=== PATIENT | female | born 1970 | race Caucasian/White ===

== ENCOUNTER 2021-02-12 21:48 | Emergency (ER) | payer MEDICAID, OTHER ==
[~2021-02-12] VITALS: Ht 165.1 cm; Wt 95.9 kg
--- NOTE | 2021-02-12 22:25 | NUR ---
pt in bed with monitor in place and bed rails up bilaterally call light in hand and at bedside. md in to assess. pt in bed with no signs or symptoms of acute dsitress noted respirations even and unlabored
[2021-02-12 22:32] LABS: BASOPHILS % (AUTO) 1 % (0-1); EOSINOPHILS % (AUTO) 4 % (1-7); LYMPHOCYTES % (AUTO) 50 % (22-44); MD NO; MEAN CORPUSCULAR HEMOGLOBIN 29.8 pg (27.0-34.8); MEAN CORPUSCULAR HGB CONC 34.2 g/dL (32.4-35.8); MEAN PLATELET VOLUME 8.8 fL (7.4-10.4); MONOCYTES % (AUTO) 7 % (2-9); NEUTROPHILS % (AUTO) 38 % (42-75); PLATELET COUNT 180 x10^3/uL (130-400); RED BLOOD COUNT 4.92 x10^6/uL (3.82-5.3); RED CELL DISTRIBUTION WIDTH 13.6 % (9.6-15.2)
[2021-02-12 22:40] LABS: ALBUMIN 3.2 g/dL (3.4-5.0); ANION GAP 5 mmol/L (5-15); CALCIUM 8.1 mg/dL (8.5-10.1); CHLORIDE 110 mmol/L (98-107); CREATININE 0.77 mg/dL (0.55-1.02)
[2021-02-12 22:44] LABS: TROPONIN I < 0.015 ng/mL (0.000-0.045)
--- NOTE | 2021-02-12 23:30 | NUR ---
provider at bedside to assess, pt in bed with no signs or symptoms of acute dsitress noted respirations even and unlabored
[2021-02-12] MEDS ORDERED: MECLIZINE CHEWABLE 25 MG TAB ONE (23:35)
[2021-02-12 23:37] VITALS: BP 119/80
[2021-02-13] MEDS ORDERED: MECLIZINE CHEWABLE 25 MG TAB PO ONE
== END 2021-02-12 23:44 | disposition home or self-care (01) ==
LOC: ED 22:41
DX: H66.92 Otitis media, unspecified, left ear (principal); R42 Dizziness and giddiness; R51.9 Headache, unspecified; R94.31 Abnormal electrocardiogram [ECG] [EKG]
CPT/HCPCS: 36415; 70450; 80048; 82040; 84484; 85025; 93005; 99285